=== PATIENT | male | born 1960 | race African-American/Black ===

== ENCOUNTER 2021-07-26 01:46 | Emergency (ER) | payer BC, OTHER ==
[2021-07-26] MEDS ORDERED: diphenhydrAMINE 25 MG CAP ONE (02:19)
[2021-07-26] MEDS ORDERED: Metoclopramide HCl 10 MG TAB ONE (02:20)
== END 2021-07-26 03:35 | disposition home or self-care (01) ==
LOC: BURERS 01:46
DX: I10 Essential (primary) hypertension (principal); Z79.899 Other long term (current) drug therapy; Z79.82 Long term (current) use of aspirin; E78.5 Hyperlipidemia, unspecified; E78.00 Pure hypercholesterolemia, unspecified
CPT/HCPCS: 70450